=== PATIENT | female | born 1980 | race Caucasian/White ===

== ENCOUNTER 2017-11-05 19:45 | Emergency (ER) | payer OTHER ==
--- NOTE | 2017-11-05 19:46 | EDM.PDOC ---
ED HPI GENERAL MEDICAL PROBLEM - General Chief Complaint: General Stated Complaint: ANKLES HAVE BEEN SWOLLEN AND IN PAIN. Time Seen by Provider: 11/05/17 19:46 Source of Information: Reports: Patient History Limitations: Reports: No Limitations - History of Present Illness INITIAL COMMENTS - FREE TEXT/NARRATIVE: HISTORY AND PHYSICAL: History of present illness: 37-year-old female presenting to emergency department with chief complaint of bilateral leg swelling 3-4 days. Patient states that she just arrived here from [place] and was on a [employer] bus for a total of 3 days. She noticed during that time she was getting leg swelling specifically in her left leg greater than right. She denies any associated hemoptysis or history of coagulation disorders. She has never had similar episodes and has no significant cardiopulmonary or cirrhosis history. She does state that deep breaths are somewhat painful. She denies any chest pain , palpitations, shortness of breath, syncopal episodes, or focal neurologic deficits. 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 Allergy to Cipro. On exam patient has pitting edema to the right ankle +1 and pitting edema to the left lower extremity to the mid calf +1, Homans sign is negative however patient is tender at ankle and states that she has had pain radiating into her left groin from lower extremity. Review of systems: As per history of present illness and below otherwise all systems reviewed and negative. Past medical history: As per history of present illness and as reviewed below otherwise noncontributory. Surgical history: As per history of present illness and as reviewed below otherwise noncontributory. Social history: No reported history of drug or alcohol abuse. Family history: As per history of present illness and as reviewed below otherwise noncontributory. Physical exam: HEENT: Atraumatic, normocephalic, pupils reactive, negative for conjunctival pallor or scleral icterus, mucous membranes moist, throat clear, neck supple, nontender, trachea midline. Lungs: Clear to auscultation, breath sounds equal bilaterally, chest nontender. Heart: S1S2, regular, negative for clicks, rubs, or JVD. Abdomen: Soft, nondistended, nontender. Negative for masses or hepatosplenomegaly. Negative for costovertebral tenderness. Pelvis: Stable nontender. Genitourinary: Deferred. Rectal: Deferred. Extremities: Atraumatic, negative for cords or calf pain. Neurovascular unremarkable. Neuro: Awake, alert, oriented. Cranial nerves II through XII unremarkable. Cerebellum unremarkable. Motor and sensory unremarkable throughout. Exam nonfocal. Diagnostics: CBC, CMP, UA/UC, chest x-ray, venous Doppler ultrasound, EKG Therapeutics: 40 mg Lasix IV 1 40KCl PO Ativan 1 mg IV x 1 Bactrim DS Impression: Bilateral pedal edema Venous insufficiency Bilateral ankle pain Acute cystitis Hypokalemia Plan: CBC and CXR unremarkable, CMP significant for hypokalemia, Venous dopplar negative for DVT, EKG as well as CT chest angiogram was also negative for PE or any significant cardiac pathology. Discussed with the patient that she should watch her salt intake and follow-up with her primary care provider. I did give her a prescription for 5 days of Lasix and told her to take a multivitamin vitamin for potassium replacement. In addition she was given a prescription for Bactrim for acute cystitis. Definitive disposition and diagnosis as appropriate pending reevaluation and review of above. lower legs Pain Score (Numeric/FACES): 5 - Related Data Allergies Allergy/AdvReac Type Severity Reaction Status Date / Time ciprofloxacin [From Cipro] Allergy Airway Verified 11/05/17 20:07 Tightness Home Meds: Home Meds Gabapentin [Gralise] 600 mg PO TID 11/05/17 [History] HYDROcodone/Ibuprofen [Vicoprofen] 7.5 mg PO Q6H PRN 11/05/17 [History] buPROPion [Wellbutrin] 75 mg PO BEDTIME 11/05/17 [History] ED ROS GENERAL - Review of Systems Review Of Systems: ROS reveals no pertinent complaints other than HPI. ED EXAM, GENERAL - Physical Exam Exam: See Below Course - Vital Signs Last Recorded V/S: Last Vital Signs Temp 98.3 F 11/05/17 20:01 Pulse 93 11/05/17 20:01 Resp 16 11/05/17 20:01 BP 142/58 H 11/05/17 20:01 Pulse Ox 96 11/05/17 20:01 - Orders/Labs/Meds Orders: Active Orders 24 hr Category Date Time Status EKG Documentation Completion [RC] STAT Care 11/05/17 20:13 Active CTA Chest W WO Contrast [Ang Chest] [CT] Stat Exams 11/05/17 20:58 Taken CXR [Chest 2V] [CR] Stat Exams 11/05/17 20:07 Taken Venous Doppler Lwr Ext Lt [US] Stat Exams 11/05/17 20:06 Taken CULTURE URINE [RM] Stat Lab 11/05/17 20:15 Ordered UA W/MICROSCOPIC [URIN] Stat Lab 11/05/17 20:15 Ordered Labs: Laboratory Tests 11/05/17 11/05/17 11/05/17 Range/Units 20:15 20:23 20:23 WBC 10.11 (4.0-11.0) K/uL RBC 4.48 (4.30-5.90) M/uL Hgb 13.1 (12.0-16.0) g/dL Hct 38.3 (36.0-46.0) % MCV 85.5 (80.0-98.0) fL MCH 29.2 (27.0-32.0) pg MCHC 34.2 (31.0-37.0) g/dL RDW Std Deviation 41.7 (28.0-62.0) fl RDW Coeff of Alec 14 (11.0-15.0) % Plt Count 281 (150-400) K/uL MPV 10.10 (7.40-12.00) fL Neut % (Auto) 68.2 (48.0-80.0) % Lymph % (Auto) 25.1 (16.0-40.0) % [place] % (Auto) 5.4 (0.0-15.0) % Eos % (Auto) 1.2 (0.0-7.0) % Baso % (Auto) 0.1 (0.0-1.5) % Neut # (Auto) 6.9 H (1.4-5.7) K/uL Lymph # (Auto) 2.5 H (0.6-2.4) K/uL [place] # (Auto) 0.6 (0.0-0.8) K/uL Eos # (Auto) 0.1 (0.0-0.7) K/uL Baso # (Auto) 0.0 (0.0-0.1) K/uL Nucleated RBC % 0.0 /100WBC Nucleated RBCs # 0 K/uL D-Dimer, Quantitative (0.0-0.52) mg/LFEU Sodium 141 (136-145) mmol/L Potassium 3.4 L (3.5-5.1) mmol/L Chloride 107 (98-107) mmol/L Carbon Dioxide 23.1 (21.0-32.0) mmol/L BUN 8 (7.0-18.0) mg/dL Creatinine 0.9 (0.6-1.0) mg/dL Est Cr Clr Drug Dosing 79.33 mL/min Estimated GFR (MDRD) > 60.0 ml/min Glucose 101 (74-106) mg/dL Calcium 8.7 (8.5-10.1) mg/dL Total Bilirubin 0.4 (0.2-1.0) mg/dL AST 12 L (15-37) IU/L ALT 20 (14-63) IU/L Alkaline Phosphatase 63 (46-116) U/L Total Protein 7.2 (6.4-8.2) g/dL Albumin 3.4 (3.4-5.0) g/dL Globulin 3.8 H (2.0-3.5) g/dL Albumin/Globulin Ratio 0.9 L (1.3-2.8) Urine Color DARK YELLOW Urine Appearance SLT CLOUDY Urine pH 6.0 (5.0-8.0) Ur Specific [place] >= 1.030 (1.001-1.035) Urine Protein TRACE (NEGATIVE) mg/dL Urine Glucose (UA) NEGATIVE (NEGATIVE) mg/dL Urine Ketones NEGATIVE (NEGATIVE) mg/dL Urine Occult Blood LARGE H (NEGATIVE) Urine Nitrite NEGATIVE (NEGATIVE) Urine Bilirubin SMALL H (NEGATIVE) Urine Ictotest NEGATIVE Urine Urobilinogen 0.2 (<2.0) EU/dL Ur Leukocyte Esterase TRACE (NEGATIVE) Urine RBC 0-3 (0-2/HPF) Urine WBC 5-8 (0-5/HPF) Ur Epithelial Cells MODERATE (NONE-FEW) Amorphous Sediment LIGHT (NEGATIVE) Urine Bacteria 1+ H (NEGATIVE) 11/05/17 Range/Units 20:23 WBC (4.0-11.0) K/uL RBC (4.30-5.90) M/uL Hgb (12.0-16.0) g/dL Hct (36.0-46.0) % MCV (80.0-98.0) fL MCH (27.0-32.0) pg MCHC (31.0-37.0) g/dL RDW Std Deviation (28.0-62.0) fl RDW Coeff of Alec (11.0-15.0) % Plt Count (150-400) K/uL MPV (7.40-12.00) fL Neut % (Auto) (48.0-80.0) % Lymph % (Auto) (16.0-40.0) % [place] % (Auto) (0.0-15.0) % Eos % (Auto) (0.0-7.0) % Baso % (Auto) (0.0-1.5) % Neut # (Auto) (1.4-5.7) K/uL Lymph # (Auto) (0.6-2.4) K/uL [place] # (Auto) (0.0-0.8) K/uL Eos # (Auto) (0.0-0.7) K/uL Baso # (Auto) (0.0-0.1) K/uL Nucleated RBC % /100WBC Nucleated RBCs # K/uL D-Dimer, Quantitative 0.68 H (0.0-0.52) mg/LFEU Sodium (136-145) mmol/L Potassium (3.5-5.1) mmol/L Chloride (98-107) mmol/L Carbon Dioxide (21.0-32.0) mmol/L BUN (7.0-18.0) mg/dL Creatinine (0.6-1.0) mg/dL Est Cr Clr Drug Dosing mL/min Estimated GFR (MDRD) ml/min Glucose (74-106) mg/dL Calcium (8.5-10.1) mg/dL Total Bilirubin (0.2-1.0) mg/dL AST (15-37) IU/L ALT (14-63) IU/L Alkaline Phosphatase (46-116) U/L Total Protein (6.4-8.2) g/dL Albumin (3.4-5.0) g/dL Globulin (2.0-3.5) g/dL Albumin/Globulin Ratio (1.3-2.8) Urine Color Urine Appearance Urine pH (5.0-8.0) Ur Specific [place] (1.001-1.035) Urine Protein (NEGATIVE) mg/dL Urine Glucose (UA) (NEGATIVE) mg/dL Urine Ketones (NEGATIVE) mg/dL Urine Occult Blood (NEGATIVE) Urine Nitrite (NEGATIVE) Urine Bilirubin (NEGATIVE) Urine Ictotest Urine Urobilinogen (<2.0) EU/dL Ur Leukocyte Esterase (NEGATIVE) Urine RBC (0-2/HPF) Urine WBC (0-5/HPF) Ur Epithelial Cells (NONE-FEW) Amorphous Sediment (NEGATIVE) Urine Bacteria (NEGATIVE) Meds: Medications Discontinued Medications Generic Name Dose Route Start Last Admin Trade Name Freq PRN Reason Stop Dose Admin Furosemide 40 mg 11/05/17 20:13 11/05/17 21:36 Lasix IVPUSH 11/05/17 20:14 40 mg NOW ONE Administration Lorazepam 1 mg 11/05/17 20:25 11/05/17 21:36 Ativan IVPUSH 11/05/17 20:26 1 mg ONETIME ONE Administration Potassium Chloride 40 meq 11/05/17 20:59 11/05/17 21:36 Klor-Con M20 PO 11/05/17 21:00 40 meq ONETIME ONE Administration Departure - Departure Time of Disposition: 22:26 Disposition: Home, Self-Care 01 Condition: Good Clinical Impression: Venous insufficiency of both lower extremities, Acute hypokalemia Acute cystitis Qualifiers: Hematuria presence: without hematuria Qualified Code(s): N30.00 - Acute cystitis without hematuria - Discharge Information Referrals: PCP,None [Primary Care Provider] - Forms: ED Department Discharge Additional Instructions: The following information is given to patients seen in the emergency department who are being discharged to home. This information is to outline your options for follow-up care. We provide all patients seen in our emergency department with a follow-up referral. The need for follow-up, as well as the timing and circumstances, are variable depending upon the specifics of your emergency department visit. If you don't have a primary care physician on staff, we will provide you with a referral. We always advise you to contact your personal physician following an emergency department visit to inform them of the circumstance of the visit and for follow-up with them and/or the need for any referrals to a consulting specialist. The emergency department will also refer you to a specialist when appropriate. This referral assures that you have the opportunity for follow-up care with a specialist. All of these measure are taken in an effort to provide you with optimal care, which includes your follow-up. Under all circumstances we always encourage you to contact your private physician who remains a resource for coordinating your care. When calling for follow-up care, please make the office aware that this follow-up is from your recent emergency room visit. If for any reason you are refused follow-up, please contact the [facility] Emergency Department at and asked to speak to the emergency department charge nurse. [facility] [address] [place] [id number] [facility] [address] [place] [id number] [facility] [address] [place] [id number] Please call 1 of the above numbers and make a follow-up appointment with a primary care provider. Be should to tell them that you were seen in the emergency department and they wish for you to be followed with. Take medications as prescribed. Be sure to take a multivitamin with potassium as your potassium level was mildly low in the ER. Return to emergency department if any new or worsening symptoms. - My Orders Last 24 Hours: My Active Orders 11/05/17 20:06 Venous Doppler Lwr Ext Lt [US] Stat 11/05/17 20:07 CXR [Chest 2V] [CR] Stat 11/05/17 20:13 EKG Documentation Completion [RC] STAT 11/05/17 20:15 CULTURE URINE [RM] Stat UA W/MICROSCOPIC [URIN] Stat 11/05/17 20:58 CTA Chest W WO Contrast [Ang Chest] [CT] Stat - Assessment/Plan Last 24 Hours: My Active Orders 11/05/17 20:06 Venous Doppler Lwr Ext Lt [US] Stat 11/05/17 20:07 CXR [Chest 2V] [CR] Stat 11/05/17 20:13 EKG Documentation Completion [RC] STAT 11/05/17 20:15 CULTURE URINE [RM] Stat UA W/MICROSCOPIC [URIN] Stat 11/05/17 20:58 CTA Chest W WO Contrast [Ang Chest] [CT] Stat
[2017-11-05] MEDS ORDERED: Furosemide 40 MG/4 ML VIAL IVPUSH ONE (20:13)
[2017-11-05] MEDS ORDERED: LORazepam 2 MG/ML SDV IVPUSH ONE (20:25)
[2017-11-05 20:51] LABS: CHLORIDE,CL 107 mmol/L (98-107); SODIUM,NA 141 mmol/L (136-145)
[2017-11-05] MEDS ORDERED: Potassium Chloride 20 MEQ Tab.ER PO ONE (20:59)
[2017-11-06] MEDS ORDERED: Iopamidol 755 MG/ML 500 ML Multipack Bottle IVPUSH STA (04:10)
--- NOTE | 2017-11-06 13:48 | US ---
EXAM DATE: 11/05/17 PATIENT'S AGE: 37 Patient: ANILA LAMAS Facility: [place], [place] Site . Site : 1980 Study: US Extremity Venous [id number]/2017 9:01:39 PM Ordering Physician: Burak Lord Final Report: INDICATION: Left lower extremity pain and swelling. TECHNIQUE: Ultrasound venous duplex lower left extremity. Compression venous exam was performed using laguna-scale, color Doppler, and spectral Doppler analysis. COMPARISON: No comparison. FINDINGS: Sonographic imaging demonstrates the left common femoral, deep femoral, superficial femoral, popliteal, posterior tibial and greater saphenous and the contralateral right common femoral veins to be fully compressible with normal color Doppler blood flow and augmentation. IMPRESSION: No sign of deep venous thrombosis. Dictated by José Simmons MD @ Nov 05 2017 9:18PM (Electronic Signature) Report Signed by Proxy. CHARLA
--- NOTE | 2017-11-06 13:49 | CR ---
EXAM DATE: 11/05/17 PATIENT'S AGE: 37 Patient: ANILA LAMAS Facility: [place], [place] Site . Site : 1980 Study: XRay Chest [id number]/12/2018 9:10:26 PM Ordering Physician: Burak Lord Final Report: CHEST 2 VIEWS INDICATION: Short of breath. IMPRESSION: Normal heart size and vascular pattern. Lungs are clear. No pneumothorax or pleural abnormality. Dictated by José Simmons MD @ Nov 05 2017 9:14PM (Electronic Signature) Report Signed by Proxy. [facility]
--- NOTE | 2017-11-06 13:51 | CT ---
EXAM DATE: 11/05/17 PATIENT'S AGE: 37 Patient: ANILA LAMAS Facility: [place], [place] Site . Site : 1980 Study: CT Chest Angio [id number]/12/2018 9:29:23 PM Ordering Physician: Burak Lodr Final Report: INDICATION: elevated d-dimer, shortness of breath, PE? CT CHEST WITH CONTRAST TECHNIQUE: Multidetector axial CT imaging was performed through the chest following intravenous contrast administration using 70mL Isovue 370. COMPARISON: None. FINDINGS: No filling defects are identified in the pulmonary arterial tree to suggest pulmonary emboli. The thoracic aorta shows normal caliber. The lungs are clear aside from minimal atlectasis. No pleural effusions. No mediastinal masses or abnormally enlarged lymph nodes. The heart appears within normal limits. Visualized bones show no significant findings. Included portions of the upper abdomen are unremarkable. IMPRESSION: No pulmonary emboli or other acute intrathoracic abnormalities identified. DMITRIY MEDINA MD [employer] Dictated by: Godwin Medina MD @ 11/05/2017 22:12:31 (Electronic Signature) Report Signed by Proxy. [facility]
== END 2017-11-05 22:47 | disposition home or self-care (01) ==
LOC: MW.ED 19:45
DX: I87.2 Venous insufficiency (chronic) (peripheral) (principal); N30.00 Acute cystitis without hematuria; E87.6 Hypokalemia; M25.571 Pain in right ankle and joints of right foot; M25.572 Pain in left ankle and joints of left foot; Z88.1 Allergy status to other antibiotic agents
CPT/HCPCS: 36415; 71046; 71275; 80053; 81001; 85025; 85379; 87086; 93005; 93971; 96374; 96375; 99285; A9270; J1940; J2060; Q9967; 99284